=== PATIENT | female | born 1945 | race Caucasian/White ===

== ENCOUNTER 2016-11-18 09:48 | Observation (INO) ==
[2016-11-18] MEDS ORDERED: ASPIRIN 325 MG TABLET PO STA (10:23)
[2016-11-18] MEDS ORDERED: ENOXAPARIN 100 MG/ML SYRINGE SUBCUT STA (10:23)
[2016-11-18] MEDS ORDERED: ONDANSETRON 4 MG/2 ML VIAL IV STA (10:23)
[2016-11-18 10:31] LABS: Basophils # 0.1 10*3/uL (0.0-0.2); Basophils % 1.3 % (0.0-0.8); Eosinophils # 0.1 10*3/uL (0.0-0.87); Eosinophils % 1.5 % (0.00-10.9); Hematocrit 42.5 VOL% (35.7-47.0); Hemoglobin 14.2 GM/DL (12.0-16.0); Immature Granulocytes % 0.2 %; Immature Granulocytes Absolute 0.01 #; Lymphocytes # 1.1 10*3/uL (1.4-4.0); Lymphocytes % 22.8 % (21.3-54.2); Mean Corpuscular HGB Conc 33.4 GM/DL (32-36); Mean Corpuscular Hemoglobin 28 PG (27-34); Mean Corpuscular Volume 82.8 FL (87-102); Mean Platelet Volume 10.4 FL (9.6-12.0); Monocytes # 0.5 10*3/uL (0.11-0.8); Monocytes % 10.4 % (1.7-12.7); Neutrophils # 2.9 10*3/uL (1.4-7.4); Neutrophils % 63.8 % (38.7-73.9); Platelet Count 182 T/CUMM (130-400); Red Blood Count 5.13 MC/CUMM (3.8-5.5); Red Cell Distribution Width 13.4 % (9.3-17.3); White Blood Count 4.6 T/CUMM (4-12)
[2016-11-18] MEDS ORDERED: ONDANSETRON 4 MG/2 ML VIAL ONE (10:35)
[2016-11-18] MEDS ORDERED: ASPIRIN 325 MG TABLET ONE (10:35)
[2016-11-18] MEDS ORDERED: ENOXAPARIN 60 MG/0.6 ML SYRINGE ONE (10:35)
[2016-11-18 10:37] LABS: Partial Thromboplastin Time 25.9 SECS (0-40)
[2016-11-18 10:44] LABS: Alanine Aminotransferase 23 U/L (13-56); Albumin 3.8 G/DL (3.4-5.0); Alkaline Phosphatase 77 U/L (45-117); Aspartate Amino Transferase 14 U/L (0-37); Blood Urea Nitrogen 8 MG/DL (7-18); Calcium 9.2 MG/DL (8.5-10.1); Glucose 114 MG/DL (74-106); Magnesium 2.3 MG/DL (1.8-2.4); Osmolality,Calculated 281.1 MOS/KG (273-304); Potassium 3.7 MMOL/L (3.5-5.1); Sodium 142 MMOL/L (136-145); Total Protein 6.9 G/DL (6.4-8.3); Troponin I Only < 0.015 NG/ML (0.00-0.045)
--- NOTE | 2016-11-18 11:01 | Emergency Department Note ---
Jazmine Coburn Rolonda, am scribing for, and in the presence of, Joss Flores MD 10:32. Sandra Coburn Phillip K, MD, personally performed the services described in this documentation, ascribed by Melany Lucero in my presence, and it is both accurate and complete . Arrival - Arrival Chief Complaint: Chest Pain ED Nursing Triage Note: c/o has had cp for a few days. pt was seen at [facility] yesterday and d/cd. pt went to her appointment with susan this am and was sent here. pt took a xanax at [facility] before coming up here Mode of Arrival: Stretcher Limitations: No Limitations Source: Patient, Old Records Reviewed, RN Notes Reviewed Time Seen by Provider: 11/18/16 10:15 - History of Present Illness HPI Narrative: Pt is a 71 y/o female who presents to the ED via EMS with c/o chest pain. Pt has a PMHx of Afib, heart cath, HTN, and HLD. Pt states that the pain is in the middle and on the left and right side of her chest. She states that she has a f/ u appointment with Dr. Thacker and that she was seen at [facility] last night. She states that she had diaphoresis, nausea, and SOB. Pt is f/u by Dr. Chaves. No other complaint/pain in ED. patient went to Dr. Dr. Thacker's office this morning was sent over here for further evaluation. Patient's pain does radiate down her left arm. She also has some nausea vomiting and dyspnea with this pain. Onset (ago): day(s) Consistency: constant Severity: mild Severity scale (1-10): 3 Allergies/Adverse Reactions: Allergies Allergy/AdvReac Type Severity Reaction Status Date / Time dabigatran etexilate Allergy ITCHING Verified 08/16/14 09:15 [From Pradaxa] metoprolol Allergy ITCHING Verified 08/16/14 09:15 Verapamil Allergy ITCHING Verified 08/16/14 09:15 Warfarin [From Coumadin] Allergy ITCHING Verified 08/16/14 09:15 Home Medications: Home Medications Medication Instructions Recorded Confirmed Type ALPRAZolam [Alprazolam] 1 mg PO TID 11/18/16 History Atorvastatin [Lipitor] 20 mg PO BEDTIME 11/18/16 History Calcium (Carb)/Vit D 500-200 1 tablet PO DAILY 11/18/16 History [Oscal 500 + D] Cetirizine HCl [Cetirizine Tab] 10 mg PO DAILY 11/18/16 History Citalopram Hydrobromide 40 mg PO DAILY 11/18/16 History [Citalopram HBr] Estrogens(Conj) Vag Cream 1 applic TOP BEDTIME PRN 11/18/16 History [Premarin Vag Cream] Gabapentin [Gabapentin] 300 mg PO DAILY 11/18/16 History Ranitidine Tab [Zantac Tab] 150 mg PO BID 11/18/16 History dilTIAZem HCl [Diltiazem ER (12 120 mg PO BID 11/18/16 History hr)] Review of System - Review of System 12 point system: reviewed and no additional remarkable complaints except as stated - Review of System Constitutional: Present: diaphoresis. Absent: chills Eyes: Absent: discharge Head/Ears/Nose/Throat: Absent: earache Respiratory: Present: respiratory distress (SOB). Absent: cough Cardiovascular: Present: chest pain (wall). Absent: palpitations Gastrointestinal: Present: nausea. Absent: vomiting Genitourinary female: Absent: dysuria Musculoskeletal: Absent: arm pain Skin: Absent: rash Neurological: Absent: headache, weakness Psychiatric: Absent: anxiety Endocrine: Absent: cold intolerance Hematological/Lymphatic: Absent: easy bleeding Allergic/Immunologic: Absent: facial swelling Medical,Surgical,& Family Hx - Medical History Cardio: History of: Cardiac Dysrhythmia, Hypertension Comment Only: Cerebrovascular Disease (afib) Psychological: History of: Anxiety Disorders, Depression Neurology: History of: Cerebrovascular Accident Endocrine: History of: Dyslipidemia Gastrointestinal: History of: GERD - Social History Smoking Status: Never smoker Frequency of Alcohol Use: None Type of Drug Use: None Exam Vital Signs: Vital Signs Temperature 98.6 F 11/18/16 09:55 Pulse Rate 85 11/18/16 09:55 Respiratory Rate 18 11/18/16 10:02 Blood Pressure 153/100 11/18/16 09:55 O2 Sat by Pulse Oximetry 99 11/18/16 09:55 - General General appearance: alert, in no apparent distress - Head Head exam: Present: atraumatic, normocephalic - Eye Eye exam: Present: PERRL, EOMI - ENT ENT exam: Present: mucous membranes moist. Absent: mucous membranes dry - Neck Neck exam: Present: full ROM. Absent: tenderness - Chest Chest inspection: Present: symmetric chest wall rise, tenderness (to palpation to left chest) - Respiratory Respiratory exam: Present: normal lung sounds bilaterally. Absent: wheezes - Cardiovascular Cardiovascular exam: Present: regular rate, irregular rhythm - Abdominal Exam Abdominal exam: Present: soft, normal bowel sounds. Absent: tenderness - Extremities Exam Extremities exam: Present: full ROM. Absent: tenderness - Back Exam Back exam: Present: full ROM. Absent: tenderness - Neurological Exam Neurological exam: Present: alert, oriented X3, CN II-XII intact - Psychiatric Psychiatric exam: Present: normal affect, normal mood - Skin Skin exam: Present: warm, dry, intact, normal color Results - Labs CBC & BMP: 11/18/16 10:07 11/18/16 10:07 Lab Results: I have reviewed the patients labs Labs: Laboratory Tests 11/18/16 11/18/16 10:07 10:07 WBC 4.6 RBC 5.13 Hgb 14.2 Hct 42.5 MCV 82.8 L Baso % (Auto) 1.3 H Lymph # (Auto) 1.1 L INR 1.0 PT Patient/Control Mix 11.0 Circ Anticoag PTT 25.9 Laboratory Tests 11/18/16 10:07 Sodium 142 Potassium 3.7 Chloride 107 Carbon Dioxide 29 BUN 8 GFR Calculation 79 Glucose 114 H AST 14 - EKG EKG results: interpreted by ERMD (Atrial fibrillation with nonspecific ST-T changes) - Diagnostic Findings Procedure: Chest x-ray: image reviewed by me (Nothing acute) Disposition Clinical Impression: Chest pain, Rule out unstable angina Case discussed with: patient Disposition: Still a Patient Condition: Guarded Additional Instructions: Admit to Dr. Cornejo
[2016-11-18] MEDS ORDERED: ACETAMINOPHEN 325 MG TABLET PO PRN (11:04)
[2016-11-18] MEDS ORDERED: MAGNESIUM SULF RIDER 4 GM in PREMIX 1 EACH IV PRN (11:04)
[2016-11-18] MEDS ORDERED: MAGNESIUM SULF RIDER 2 GM in PREMIX 1 EACH IV PRN (11:04)
--- NOTE | 2016-11-18 11:08 | XRay Report ---
XR chest 2V Date: 11/18/2016 10:23 AM History: Chest pain Comparison: 06/08/2010 Technique: PA and lateral chest Findings: The heart is minimally enlarged with uncoiling of the aorta. The lungs and mediastinum are stable in appearance. Degenerative changes are noted with prior cholecystectomy. Impression: No acute cardiopulmonary pathology identified. PROCEDURE INTERPRETED AT [facility] DEPARTMENT OF RADIOLOGY Final Report Signed by: Dr. Mariola Alfaro
--- NOTE | 2016-11-18 13:23 | Cardiology History & Physical ---
<Katie Donohue - Last Filed: 11/18/16 13:35> Assessment and Plan - Time spent with patient Time spent with patient: Greater than 30 minutes (1) Atypical chest pain Status: Acute Assessment and plan: SEE PLAN OF CARE LISTED BELOW. Current Visit: Yes (2) Chronic a-fib Status: Chronic Assessment and plan: SEE PLAN OF CARE LISTED BELOW. Current Visit: Yes (3) Hypertension Status: Chronic Assessment and plan: SEE PLAN OF CARE LISTED BELOW. Current Visit: Yes (4) Dyslipidemia Status: Chronic Assessment and plan: SEE PLAN OF CARE LISTED BELOW. Current Visit: Yes (5) History of CVA (cerebrovascular accident) Status: Chronic Assessment and plan: SEE PLAN OF CARE LISTED BELOW. Current Visit: Yes (6) GERD (gastroesophageal reflux disease) Status: Chronic Assessment and plan: SEE PLAN OF CARE LISTED BELOW. Current Visit: Yes (7) Anxiety Status: Chronic Assessment and plan: SEE PLAN OF CARE LISTED BELOW. Current Visit: Yes History of Present Illness Chief complaint: chest pain History of present illness: [employer] HR DEVELOPER: Dr. Thacker PCP: Dr. Chaves Ms. Machado is a 71 year old female without known coronary artery disease, routinely followed by Dr. Thacker. Cardiac risk factors include: Hypertension , dyslipidemia, advanced age and family history of premature CAD (son had OR at age 37). Past medical history includes: Anxiety, chronic A. fib, CVA, depression, GERD and MR. Most recent echocardiogram was performed August 2016. At that time, her ejection fraction was preserved at 65%. Mild MR. Moderate TR. Mild aortic regurgitation and mild pulmonic regurgitation. Estimated PAP 45 mmHg. She had heart catheterization performed at [facility] in 2007 which revealed normal coronary anatomy. No significant obstructive CAD was noted per report. May 2012 she had negative stress test. Earlier this morning, she was at the cardiovascular [facility] after her routine checkup with her stapler machine when she began experience any chest pain. EKG was obtained and she was sent to the emergency department for further evaluation. Patient was sent to the emergency department from the cardiovascular [facility] earlier this morning after complaining of chest pain. She reports that she has been experiencing pain all over her chest for the last 3 days. Her pain moves. Sometimes she hurts on the left side and other day she hurts on the right. Today, she says she is mostly hurting on the right side of her chest. This is nonradiating. Associated with shortness of breath, abdominal pain and nausea. Denies diaphoresis. She is unable to identify any specific alleviating or aggravating factors. It is not worsened with exertion, positioning or deep breathing. She does report that she presented to [facility] last night. She received nitroglycerin which did not help her pain at all. She was then sent home. She reports that she was still having chest pain when she left the emergency department. Today she [place] had appointment scheduled with her primary stapler machine. However, her primary stapler machine was not in the clinic and she was seen by Dr. Pabon. EKG was obtained after she reported chest pain and she was sent to the emergency department for further evaluation. She has history of depression and anxiety. She reports over the last week she has been more depressed and anxious than usual. She reports regular exercise on the treadmill. She is able to perform this activity without experiencing chest pain, heaviness or tightness. She denies change in her exercise tolerance. Patient has been admitted to cardiology's service. Patient was seen and examined in the ICU. She is a telemetry overflow. No rooms available on the telemetry unit. She continues to complain of chest discomfort. Upon exam, her chest pain is reproducible to light palpation. She tells me that this is the exact same pain that she has been experiencing which she came to the emergency department for further evaluation. Cardiac biomarkers have been negative so far. EKG is unchanged from previous tracings. Chest x-ray does not reveal any acute cardia pulmonary processes. I have discussed this patient with Dr. Cornejo. We will admit patient and rule out for myocardial infarction. Suspect that her chest pain has anxiety component as well as musculoskeletal. We will treat patient's musculoskeletal pain with NSAIDs. We will cycle cardiac biomarkers and EKGs in order to formally rule out patient for myocardial infarction. If these remain negative she will be eligible for discharge home tomorrow. I will further discuss with Dr. Cornejo and await his additional recommendations. IMPRESSION AND PLAN: 1. ATYPICAL CHEST PAIN - This is chronic for her. Atypical in nature. She has undergone cardiac workup in the past which has been negative. Cardiac biomarkers negative so far. EKG unchanged from previous tracings. I suspect that her chest pain is multifactorial in etiology to include musculoskeletal as well as anxiety. At this point, we will admit patient and rule out for myocardial infarction. We will treat patient's musculoskeletal pain as well as anxiety. Toradol initiated. Will continue patient's Xanax. If cardiac biomarkers and EKGs remain negative will anticipate discharge home in the morning. Patient did receive therapeutic dose of Lovenox in the emergency department. Continue nitrates. I have added aspirin. I will further discuss with Dr. Cornejo and await his additional recommendations. 2. CHRONIC ATRIAL FIBRILLATION - Patient has chronic atrial fibrillation. She is rate controlled with current medication regimen. She is on anticoagulation as she is allergic to both Coumadin and Xarelto. She is a very high stroke risk as she does have a history of stroke in the past. However, given her allergy to Coumadin and NOAC she is not a candidate for anticoagulation. 3. HYPERTENSION - Well controlled. Will monitor blood pressure and adjust accordingly this hospitalization. 4. DYSLIPIDEMIA - Continue lipid-lowering agent. Lipid panel in the morning. 5. HISTORY OF CVA - Patient is allergic to NOAC class as well as Coumadin. I have added low-dose aspirin. 6. GERD - PPI initiated. 7. ANXIETY - Continue Xanax. Home Medications Medication Instructions Recorded Confirmed Type ALPRAZolam [Alprazolam] 1 mg PO TID 11/18/16 11/18/16 History Ascorbic Acid Tab [Vitamin C Tab] 500 mg PO QAM 11/18/16 11/18/16 History Calcium (Carb)/Vit D 500-200 1 tablet PO QAM 11/18/16 11/18/16 History [Oscal 500 + D] Cetirizine HCl [Cetirizine Tab] 10 mg PO QPM 11/18/16 11/18/16 History Cholecalciferol (Vitamin D3) 2,000 unit PO QAM 11/18/16 11/18/16 History [Vitamin D3] Citalopram Hydrobromide 40 mg PO QPM 11/18/16 11/18/16 History [Citalopram HBr] Gabapentin [Gabapentin] 300 mg PO BEDTIME PRN 11/18/16 11/18/16 History Multivitamin (Centrum) [Centrum 1 tablet PO QAM 11/18/16 11/18/16 History Tab] Nitroglycerin Sl Tab [Nitrostat] 0.4 mg SL Q5M PRN 11/18/16 11/18/16 History [place]-3 Fatty Acids [[place]-3 Chew 100 mg PO QAM 11/18/16 11/18/16 History Tab] Ranitidine Tab [Zantac Tab] 150 mg PO BID PRN 11/18/16 11/18/16 History Ubidecarenone [Co Q-10] 100 mg PO QAM 11/18/16 11/18/16 History dilTIAZem HCl [Diltiazem ER (12 120 mg PO BID 11/18/16 11/18/16 History hr)] Allergies Allergy/AdvReac Type Severity Reaction Status Date / Time dabigatran etexilate Allergy ITCHING Verified 08/16/14 09:15 [From Pradaxa] metoprolol Allergy ITCHING Verified 08/16/14 09:15 Verapamil Allergy ITCHING Verified 08/16/14 09:15 Warfarin [From Coumadin] Allergy ITCHING Verified 08/16/14 09:15 - Constitutional Constitutional: Present: as per HPI. Absent: chills, fatigue, fever(s), headache(s), lethargy, malaise, weakness, weight gain, weight loss - Cardiovascular Cardiovascular: Present: as per HPI, chest pain at rest, dyspnea, lightheadedness. Absent: claudication, diaphoresis, dyspnea on exertion, edema , radiating jaw, neck or arm pain, orthopnea, palpitations, PND - Respiratory Respiratory: Present: as per HPI, dyspnea. Absent: cough, hemoptysis, dyspnea on exertion, wheezing, snoring, pain on inspiration, change in phlegm color - Gastrointestinal Gastrointestinal: Present: as per HPI, abdominal pain, heartburn, nausea. Absent: change in bowel habits, coffee ground emesis, hematemesis, hematochezia , melena, vomiting - Neurological Neurological: Present: as per HPI, dizziness. Absent: abnormal gait, abnormal speech, behavioral changes, frequent falls, syncope - Psychiatric Psychiatric: Present: as per HPI, anxiety, depression, panic attacks - Hematologic/Lymphatic Hematologic/Lymphatic: Present: as per HPI Medical,Surgical,& Family Hx - Medical History Cardio: History of: Cardiac Dysrhythmia (afib), Cerebrovascular Disease (afib), Hypertension Psychological: History of: Anxiety Disorders, Depression Neurology: History of: Cerebrovascular Accident Endocrine: History of: Dyslipidemia Gastrointestinal: History of: GERD - Surgical History Cardiac Surgeries: Sugical HX of: Cardiac Catheterization - Family History Family History: Reports;: Family Heart Disease - Social History Smoking Status: Never smoker Frequency of Alcohol Use: None Type of Drug Use: None Marital Status: Lives With:: Alone Functional capacity: independent ambulation Cardiology Physical Exam - Constitutional Vitals: Vital Signs Temp Pulse Resp BP Pulse Ox 98.6 F 85 18 153/100 99 11/18/16 09:55 11/18/16 09:55 11/18/16 10:02 11/18/16 09:55 11/18/16 09:55 Intake and Output 11/17/16 11/18/16 11/18/16 22:59 06:59 14:59 Other: Weight 137 lb Patient Weight 11/19/16 06:59 Weight 137 lb Exam: General: Appears well with no apparent distress. Pleasant and cooperative. Appears comfortable. HEENT: PERRL, normocephalic, atraumatic. Mucous membranes moist. No jaundice noted. Conjunctiva moist and clear, sclerae anicteric Neck: No JVD/HJR, no thyromegaly or lymphadenopathy noted. No carotid bruit appreciated Cardiac: Regular rate and rhythm. No murmur rub or gallop. Lungs: Clear to auscultation without accessory muscle use to assist the respiratory pattern. Not requiring oxygen. Abdomen: Soft, bowel sounds normoactive. Nontender and nondistended. No abdominal bruit or thrill noted. No masses noted. Extremities: No clubbing, cyanosis noted. No edema noted. Upper extremity pulses 2+. Lower extremity pulses 2+. Capillary refill less than 3 seconds. Skin: No unusual lesions or rashes. No skin breakdown appreciated. Neuro: Awake, alert and oriented 3. Moves all extremities well without hemiparesis or paralysis. No essential tremor is appreciated. Result/EKG - Labs CBC & BMP: 11/18/16 10:07 11/18/16 10:07 Lab Results: I have reviewed the past 24 hour labs Labs: Laboratory Results - last 24 hr 11/18/16 11/18/16 11/18/16 10:07 10:07 10:07 WBC 4.6 RBC 5.13 Hgb 14.2 Hct 42.5 MCV 82.8 L MCH 28 MCHC 33.4 RDW 13.4 Plt Count 182 MPV 10.4 Neut % (Auto) 63.8 Lymph % (Auto) 22.8 [place] % (Auto) 10.4 Eos % (Auto) 1.5 Baso % (Auto) 1.3 H Neut # (Auto) 2.9 Lymph # (Auto) 1.1 L [place] # (Auto) 0.5 Eos # (Auto) 0.1 Baso # (Auto) 0.1 Immature Gran % 0.2 Nucleated RBC % 0.0 Immature Gran # 0.01 Nucleated RBCs # 0.00 Immature Plt Fraction 0.0 INR 1.0 PT Patient/Control Mix 11.0 Circ Anticoag PTT 25.9 Sodium 142 Potassium 3.7 Chloride 107 Carbon Dioxide 29 Anion Gap 9.7 BUN 8 Creatinine 0.70 GFR Calculation 79 BUN/Creatinine Ratio 11.00 Glucose 114 H Calculated Osmolality 281.1 Calcium 9.2 Magnesium 2.3 Total Bilirubin 0.50 AST 14 ALT 23 Alkaline Phosphatase 77 Total Creatine Kinase 57 CK-MB (CK-2) 1.1 Troponin I < 0.015 Total Protein 6.9 Albumin 3.8 Globulin 3.1 Albumin/Globulin Ratio 1.2 <Dexter Cornejo - Last Filed: 11/18/16 18:21> History of Present Illness History of present illness: Patient personally interviewed and examined and chart reviewed. Discussed this patient's case with Katie Donohue CLASSIFIER TENDER. I agree with the assessment and evaluation. Ms. Machado is a 71 year old female who has chronic chest pain is recurrent and noncardiac. She has had negative evaluations previously. Her biomarkers and ECGs are negative. She has chronic atrial fibrillation. The patient the time of my visit had all ready received IV Toradol with this had complete resolution of her pain. She is eating supper at my arrival. On admission the patient had tenderness with palpation over her chest that reproduces her pain as well as a deep breaths. Certainly if her biomarkers and ECG continues to be stable no further evaluation indicated she can be discharged tomorrow. Cardiology Physical Exam - Constitutional Vitals: Vital Signs Temp Pulse Resp BP Pulse Ox 98.6 F 85 17 163/80 99 11/18/16 16:00 11/18/16 16:00 11/18/16 16:00 11/18/16 16:00 11/18/16 16:00 Intake and Output 11/18/16 11/18/16 11/18/16 07:59 15:59 23:59 Output Total 0 / 0 Balance 0 / 0 Output: Urine 0 / 0 Other: Weight 62.142 kg Patient Weight 11/18/16 23:59 Weight 62.142 kg Result/EKG - Labs CBC & BMP: 11/18/16 10:07 11/18/16 10:07 Labs: Laboratory Results - last 24 hr 11/18/16 11/18/16 11/18/16 10:07 10:07 10:07 WBC 4.6 RBC 5.13 Hgb 14.2 Hct 42.5 MCV 82.8 L MCH 28 MCHC 33.4 RDW 13.4 Plt Count 182 MPV 10.4 Neut % (Auto) 63.8 Lymph % (Auto) 22.8 [place] % (Auto) 10.4 Eos % (Auto) 1.5 Baso % (Auto) 1.3 H Neut # (Auto) 2.9 Lymph # (Auto) 1.1 L [place] # (Auto) 0.5 Eos # (Auto) 0.1 Baso # (Auto) 0.1 Immature Gran % 0.2 Nucleated RBC % 0.0 Immature Gran # 0.01 Nucleated RBCs # 0.00 Immature Plt Fraction 0.0 INR 1.0 PT Patient/Control Mix 11.0 Circ Anticoag PTT 25.9 Sodium 142 Potassium 3.7 Chloride 107 Carbon Dioxide 29 Anion Gap 9.7 BUN 8 Creatinine 0.70 GFR Calculation 79 BUN/Creatinine Ratio 11.00 Glucose 114 H Calculated Osmolality 281.1 Calcium 9.2 Magnesium 2.3 Total Bilirubin 0.50 AST 14 ALT 23 Alkaline Phosphatase 77 Total Creatine Kinase 57 CK-MB (CK-2) 1.1 Troponin I < 0.015 Total Protein 6.9 Albumin 3.8 Globulin 3.1 Albumin/Globulin Ratio 1.2 11/18/16 11/18/16 13:16 16:09 WBC RBC Hgb Hct MCV MCH MCHC RDW Plt Count MPV Neut % (Auto) Lymph % (Auto) [place] % (Auto) Eos % (Auto) Baso % (Auto) Neut # (Auto) Lymph # (Auto) [place] # (Auto) Eos # (Auto) Baso # (Auto) Immature Gran % Nucleated RBC % Immature Gran # Nucleated RBCs # Immature Plt Fraction INR PT Patient/Control Mix Circ Anticoag PTT Sodium Potassium Chloride Carbon Dioxide Anion Gap BUN Creatinine GFR Calculation BUN/Creatinine Ratio Glucose Calculated Osmolality Calcium Magnesium Total Bilirubin AST ALT Alkaline Phosphatase Total Creatine Kinase 55 51 CK-MB (CK-2) 1.0 < 1.0 Troponin I < 0.015 < 0.015 Total Protein Albumin Globulin Albumin/Globulin Ratio
[2016-11-18] MEDS ORDERED: GABAPENTIN 300 MG CAPSULE PO PRN (13:43)
--- NOTE | 2016-11-18 13:44 | Order Completion Report ---
See report scanned to EMR
[2016-11-18 14:15] LABS: Troponin I Only < 0.015 NG/ML (0.00-0.045)
[2016-11-18] MEDS: KETOROLAC 15 MG/1 ML VIAL IV SCH ×2 (16:13→18:59)
[2016-11-18] MEDS: PANTOPRAZOLE 40 MG TABLET PO SCH (16:13)
[2016-11-18] MEDS: ALPRAZolam 0.5 MG TABLET PO SCH ×2 (16:18→21:14)
[2016-11-18 17:02] LABS: Troponin I Only < 0.015 NG/ML (0.00-0.045)
[2016-11-18] MEDS ORDERED: CITALOPRAM 40 MG TABLET PO SCH (19:00)
[2016-11-18] MEDS ORDERED: CETIRIZINE 10 MG TABLET PO SCH (19:00)
[2016-11-18 20:22] LABS: Troponin I Only < 0.015 NG/ML (0.00-0.045)
[2016-11-18] MEDS: DILTIAZEM CD 120 MG CAPSULE PO SCH (21:12)
[2016-11-18] MEDS: NITROGLYCERIN SL 0.4 MG TABLET SL PRN ×2 (22:55→23:00)
[2016-11-18] MEDS ORDERED: ALUM/MAG/SIMETH/LIDO VISC 1:1 30 ML BOTTLE PO ONE (23:01)
[2016-11-19] MEDS: KETOROLAC 15 MG/1 ML VIAL IV SCH (03:08)
[2016-11-19 04:59] LABS: Basophils # 0.1 10*3/uL (0.0-0.2); Basophils % 1.3 % (0.0-0.8); Eosinophils # 0.1 10*3/uL (0.0-0.87); Eosinophils % 1.5 % (0.00-10.9); Hematocrit 41.7 VOL% (35.7-47.0); Hemoglobin 13.7 GM/DL (12.0-16.0); Immature Granulocytes % 0.2 %; Immature Granulocytes Absolute 0.01 #; Lymphocytes # 2.1 10*3/uL (1.4-4.0); Lymphocytes % 43.7 % (21.3-54.2); Mean Corpuscular HGB Conc 32.9 GM/DL (32-36); Mean Corpuscular Hemoglobin 27 PG (27-34); Mean Corpuscular Volume 83.1 FL (87-102); Mean Platelet Volume 10.2 FL (9.6-12.0); Monocytes # 0.5 10*3/uL (0.11-0.8); Monocytes % 10.9 % (1.7-12.7); Neutrophils % 42.4 % (38.7-73.9); Platelet Count 182 T/CUMM (130-400); Red Blood Count 5.02 MC/CUMM (3.8-5.5); Red Cell Distribution Width 13.4 % (9.3-17.3); White Blood Count 4.8 T/CUMM (4-12)
[2016-11-19 05:26] LABS: Risk Ratio 2.84
[2016-11-19 05:39] LABS: Calcium 9.1 MG/DL (8.5-10.1); Magnesium 2.5 MG/DL (1.8-2.4); Osmolality,Calculated 283.1 MOS/KG (273-304)
--- NOTE | 2016-11-19 07:50 | Order Completion Report ---
See report scanned to EMR
--- NOTE | 2016-11-19 08:40 | Discharge Summary ---
Addendum entered and electronically signed by Katie Donohue NP 11/19/16 09:31 : Pharmacy was not selected in the EMR. Patient was given a printed prescription for all of her new medications. Original Note: Hospital Course - Hospital Course Hospital Course: [employer] PROFESSOR: Dr. Thacker PCP: Dr. Riley SUMMARY Ms. Machado is a 71 year old female without known coronary artery disease, routinely followed by Dr. Thacker. Cardiac risk factors include: Hypertension , dyslipidemia, advanced age and family history of premature CAD (son had CO at age 37). Past medical history includes: Anxiety, chronic A. fib, CVA, depression, GERD and MR. Most recent echocardiogram was performed August 2016. At that time, her ejection fraction was preserved at 65%. Mild MR. Moderate TR. Mild aortic regurgitation and mild pulmonic regurgitation. Estimated PAP 45 mmHg. She had heart catheterization performed at [facility] in 2007 which revealed normal coronary anatomy. No significant obstructive CAD was noted per report. May 2012 she had negative stress test. Patient was sent to the emergency department from the cardiovascular [place] [facility] the [facility] 11/18/16 with complaints of atypical chest pain. She was at the cardiovascular [place] for her routine checkup with her geometry tutor when she began experience chest pain. EKG was obtained and she was sent to the emergency department for further evaluation. Upon arrival to our facility, she was ruled out for myocardial infarction with negative cardiac biomarkers. EKGs were unchanged from previous tracings. She does have a history of chronic chest pain that is recurrent in noncardiac in nature. She has had negative evaluations previously. Her chest pain was felt to have a musculoskeletal component. This was treated with IV Toradol which alleviated her pain. She will be discharged home with p.o. Toradol to use as needed. She also be given prescription for PPI. Also, anxiety seems to be playing a role as well. She takes Xanax daily at home. This will be continued at discharge. I have instructed her to follow with her PCP, Dr. Riley for further management of this. She is a history of chronic atrial fibrillation. She has maintained rate control this admission. Due to medication allergies to Coumadin and NOAC medication class she is not on chronic anticoagulation. Lipid panel was obtained. Cholesterol 264 with LDL of 162. I will add low-dose statin to patient's medication regimen in hopes to reduce side effects. She will need a repeat lipid panel in 4-6 weeks. This morning, patient is anxious for discharge home. She denies chest pain, heaviness or tightness. Having felt that she has met maximal medical therapy, she will be discharged home in stable condition. She will be given a follow-up appoint with Dr. Thacker and approximately 1 month with EKG. She has also been instructed to follow-up with her PCP, Dr. Riley for management of her anxiety/depression. Patient verbalizes understanding of discharge instructions and discharge medications. Patient personally reviewed and examined chart reviewed. I discussed his case with Katie Donohue GEOLOGICAL E LOGGER. Agree with the plan for discharge. Have discussed this with the patient. She is agreeable desires discharge. - Time spent with patient Time with patient DS: Greater than 30 minutes Diagnosis - Discharge Diagnosis (1) Atypical chest pain Status: Resolved (2) Chronic a-fib Status: Chronic (3) Hypertension Status: Chronic (4) Dyslipidemia Status: Chronic (5) History of CVA (cerebrovascular accident) Status: Chronic (6) GERD (gastroesophageal reflux disease) Status: Chronic (7) Anxiety Status: Chronic Specialty Discharge - Follow Up or Referrals Follow up with: Margoth Riley [Physician] - 2 Weeks (CALL DR. RILEY OFFICE AND MAKE A 2 WEEK APPOINTMENT) Marivel Thacker MD [Physician] - 12/08/16 9:20 am (EKG) Discharge Plan - Discharge Data Disposition: Disch To Home/Self Care Condition at Discharge: Stable Discharge Diet: heart healthy Activity: resume usual activities as tolerated Hygiene: no restrictions Weight Bearing at Discharge: weight bear as tolerated Driving: no restrictions Contact your physician if you experience:: fever over 101, Difficulty voiding, Redness or swelling, Nausea/Vomiting, Shortness of breath, pain uncontrolled by pain medications - Discharge Medications New Aspirin EC Tab 81 mg PO DAILY #30 tablet Ketorolac Tab [Toradol Tab] 10 mg PO Q6H PRN #40 tablet PRN Reason: Pain Pantoprazole Tab [Protonix Tab] 40 mg PO DAILY #30 tablet Pravastatin [Pravachol] 10 mg PO BEDTIME #15 tablet Continue dilTIAZem HCl [Diltiazem ER (12 hr)] 120 mg PO BID Gabapentin 300 mg PO BEDTIME PRN PRN Reason: BACK PAIN ALPRAZolam [Alprazolam] 1 mg PO TID Cetirizine HCl [Cetirizine Tab] 10 mg PO QPM Ascorbic Acid Tab [Vitamin C Tab] 500 mg PO QAM Ubidecarenone [Co Q-10] 100 mg PO QAM Cholecalciferol (Vitamin D3) [Vitamin D3] 2,000 unit PO QAM Citalopram Hydrobromide [Citalopram HBr] 40 mg PO QPM Calcium (Carb)/Vit D 500-200 [Oscal 500 + D] 1 tablet PO QAM Nitroglycerin Sl Tab [Nitrostat] 0.4 mg SL Q5M PRN PRN Reason: Chest Pain Multivitamin (Centrum) [Centrum Tab] 1 tablet PO QAM Marlin-3 Fatty Acids [Marlin-3 Chew Tab] 100 mg PO QAM Discontinued Ranitidine Tab [Zantac Tab] 150 mg PO BID PRN PRN Reason: GI UPSET - Follow Up or Referral Follow Up: Margoth Riley [Physician] - 2 Weeks (CALL DR. RILEY OFFICE AND MAKE A 2 WEEK APPOINTMENT) Marivel Thacker MD [Physician] - 12/08/16 9:20 am (EKG) - Forms/Instructions Instructions: Atrial Fibrillation (DC), Chest Pain (DC), Chronic Hypertension ( DC) Exam - Constitutional Vitals: Period Temp Pulse Resp BP Sys/Odell Pulse Ox Last 24 Hr 98.6 F-98.9 F 61-85 13-18 112-163/54-80 94-99 Exam: General: Appears well with no apparent distress. Pleasant and cooperative. Appears comfortable. HEENT: PERRL, normocephalic, atraumatic. Mucous membranes moist. No jaundice noted. Conjunctiva moist and clear, sclerae anicteric Neck: No JVD/HJR, no thyromegaly or lymphadenopathy noted. No carotid bruit appreciated Cardiac: Irregular rhythm, rate controlled. No murmur rub or gallop. Lungs: Clear to auscultation without accessory muscle use to assist the respiratory pattern. Not requiring oxygen. Abdomen: Soft, bowel sounds normoactive. Nontender and nondistended. No abdominal bruit or thrill noted. No masses noted. Extremities: No clubbing, cyanosis noted. No edema noted. Upper extremity pulses 2+. Lower extremity pulses 2+. Capillary refill less than 3 seconds. Skin: No unusual lesions or rashes. No skin breakdown appreciated. Neuro: Awake, alert and oriented 3. Moves all extremities well without hemiparesis or paralysis. No essential tremor is appreciated. Discharge Results Procedures and tests throughout hospitalization: Pending Orders 11/18/16 12:00 MRSA Surveillence, Inf Control Routine Labs on day of discharge: Labs from last 24 hours 11/19/16 11/19/16 11/19/16 04:47 04:47 04:46 WBC 4.8 RBC 5.02 Hgb 13.7 Hct 41.7 MCV 83.1 L MCH 27 MCHC 32.9 RDW 13.4 Plt Count 182 MPV 10.2 Neut % (Auto) 42.4 Lymph % (Auto) 43.7 Upton % (Auto) 10.9 Eos % (Auto) 1.5 Baso % (Auto) 1.3 H Neut # (Auto) 2.0 Lymph # (Auto) 2.1 Upton # (Auto) 0.5 Eos # (Auto) 0.1 Baso # (Auto) 0.1 Immature Gran % 0.2 Nucleated RBC % 0.0 Immature Gran # 0.01 Nucleated RBCs # 0.00 Immature Plt Fraction 0.0 Sodium 142 Potassium 4.0 Chloride 107 Carbon Dioxide 27 Anion Gap 12.0 BUN 14 Creatinine 0.80 GFR Calculation 70 BUN/Creatinine Ratio 17.00 Glucose 96 Calculated Osmolality 283.1 Calcium 9.1 Magnesium 2.5 H Total Creatine Kinase CK-MB (CK-2) Troponin I Triglycerides 50 Cholesterol 264 H LDL Cholesterol 162.0 VLDL Cholesterol 10.0 HDL Cholesterol 93 H Heart Disease Risk Ratio 2.84 11/18/16 11/18/16 11/18/16 19:37 16:09 13:16 WBC RBC Hgb Hct MCV MCH MCHC RDW Plt Count MPV Neut % (Auto) Lymph % (Auto) Upton % (Auto) Eos % (Auto) Baso % (Auto) Neut # (Auto) Lymph # (Auto) Upton # (Auto) Eos # (Auto) Baso # (Auto) Immature Gran % Nucleated RBC % Immature Gran # Nucleated RBCs # Immature Plt Fraction Sodium Potassium Chloride Carbon Dioxide Anion Gap BUN Creatinine GFR Calculation BUN/Creatinine Ratio Glucose Calculated Osmolality Calcium Magnesium Total Creatine Kinase 46 51 55 CK-MB (CK-2) < 1.0 < 1.0 1.0 Troponin I < 0.015 < 0.015 < 0.015 Triglycerides Cholesterol LDL Cholesterol VLDL Cholesterol HDL Cholesterol Heart Disease Risk Ratio - Imaging and Cardiology Procedure: Chest x-ray: report reviewed by me DS: Provider Date of admission: 11/18/16 11:03 Primary care physician: . No PCP Attending physician on admission: Dexter Cornejo MD Discharging clinician: Katie Donohue NP Expected date of discharge: 11/19/16
[2016-11-19] MEDS ORDERED: KETOROLAC 10 MG TABLET PO PRN (08:45)
[2016-11-19] MEDS ORDERED: ASPIRIN EC 81 MG TABLET PO SCH (09:00)
[2016-11-19] MEDS ORDERED: ASCORBIC ACID 500 MG TABLET PO SCH (09:00)
[2016-11-19] MEDS ORDERED: OMEGA PO SCH (09:00)
[2016-11-19] MEDS ORDERED: COENZYME Q10 100 MG CAPSULE PO SCH (09:00)
[2016-11-19] MEDS ORDERED: MULTIVITAMIN (CENTRUM) TABLET PO SCH (09:00)
[2016-11-19] MEDS ORDERED: FATTY ACIDS PO SCH (09:00)
[2016-11-19] MEDS ORDERED: ENOXAPARIN 40 MG/0.4 ML SYRINGE SUBCUT SCH (09:00)
[2016-11-19] MEDS ORDERED: CALCIUM (CARBONATE)/VITAMIN D 500 MG-200 UNIT TABLET PO SCH (09:00)
[2016-11-19] MEDS: DILTIAZEM CD 120 MG CAPSULE PO SCH (09:05)
[2016-11-19] MEDS: ALPRAZolam 0.5 MG TABLET PO SCH (09:09)
[2016-11-19] MEDS: PANTOPRAZOLE 40 MG TABLET PO SCH (09:10)
[2016-11-19 12:21] VITALS: BP 124/54
--- NOTE | 2016-11-19 13:08 | Order Completion Report ---
See report scanned to EMR
[2016-11-19] MEDS ORDERED: PRAVASTATIN 20 MG TABLET PO SCH (21:00)
--- NOTE | 2016-11-23 17:36 | Order Completion Report ---
See report scanned to EMR
== END 2016-11-19 11:25 | disposition home or self-care (01) ==
LOC: EDUNIT# → EDBD → N.EDINP 09:48 → N.ED 09:48 → N.EDINP 11:56 → N.CC 12:31
PROVIDERS: ADMIT Internal Medicine Cardiovascular Disease; ATTEND Internal Medicine Cardiovascular Disease

== ENCOUNTER 2019-08-08 19:50 | Inpatient (IN) ==
[2019-08-08] MEDS ORDERED: VECURONIUM 10 MG VIAL IV STA (20:04)
[2019-08-08] MEDS ORDERED: ETOMIDATE 20 MG/10 ML VIAL IV STA (20:05)
[2019-08-08] MEDS ORDERED: SODIUM CHLORIDE 0.9% 500 ML IV STA (20:08)
[2019-08-08] MEDS ORDERED: DIPH/TET/ACEL PERT BOOSTER VACCINE 0.5 ML VIAL IM ONE (20:10)
[2019-08-08 20:19] LABS: Basophils % 0.3 % (0.0-0.8); Eosinophils % 0.1 % (0.00-10.9); Hematocrit 51.7 VOL% (35.7-47.0); Hemoglobin 16.3 GM/DL (12.0-16.0); Immature Granulocytes % 0.8 %; Lymphocytes # 0.9 10*3/uL (1.4-4.0); Lymphocytes % 6.9 % (21.3-54.2); Mean Corpuscular HGB Conc 31.5 GM/DL (32-36); Mean Corpuscular Volume 84.9 FL (87-102); Mean Platelet Volume 11.7 FL (9.6-12.0); Monocytes % 12.2 % (1.7-12.7); Neutrophils % 79.7 % (38.7-73.9); Platelet Count 101 T/CUMM (130-400); Red Blood Count 6.09 MC/CUMM (3.8-5.5); Red Cell Distribution Width 14.7 % (9.3-17.3); White Blood Count 12.4 T/CUMM (4-12)
[2019-08-08 20:23] LABS: Apearance,Urine Slightly Hazy (Clear); Bacteria,Urine Occasional /HPF (Few); Bilirubin,Urine Negative (Negative); Blood, Urine Large mg/dL (Negative); Glucose,Urine (UA) Negative (Negative); Ketones,Urine Negative (Negative); Mucus,Urine Moderate /LPF (Occasional); Nitrite,Urine Negative (Negative); Protein,Urine Negative; RBC,Urine 199 /HPF (0-4); Urine Color Yellow (Yellow); Urine Specific Gravity 1.015 (1.001-1.035); Urine Urobilinogen < 2.0 EU/DL (0.2-1.0); WBC,Urine 4 /HPF (0-6)
[2019-08-08 20:26] LABS: INR 1.2
[2019-08-08 20:41] LABS: Barbiturates Screen,Urine Negative (Negative); Benzodiazepines Screen,Urine Positive (Negative); Cannabinoid Screen,Urine Negative (Negative); Opiate Screen,Urine Negative (Negative); Phencyclidine Screen,Urine Negative (Negative)
[2019-08-08 20:46] LABS: Alanine Aminotransferase 44 U/L (13-56); Albumin 3.9 G/DL (3.4-5.0); Alkaline Phosphatase 73 U/L (45-117); Aspartate Amino Transferase 47 U/L (0-37); Blood Urea Nitrogen 116 MG/DL (7-18); CKMB % 0.7 %; Calcium 8.7 MG/DL (8.5-10.1); Estimated Glom Filtration Rate 25 ML/MIN; Glucose 133 MG/DL (74-106); Osmolality,Calculated 324.8 MOS/KG (273-304); Thyroid Stimulating Hormone 0.412 uIU/ml (0.358-3.74); Total Protein 7.8 G/DL (6.4-8.3)
[2019-08-08] MEDS ORDERED: SODIUM CHLORIDE 0.9% 1,000 ML IV STA (20:52)
[2019-08-08 20:55] LABS: ABG Base Excess -1.1 MMOL/L (-2.5-2.5); ABG HCO3 23.5 MMOL/L (20-26); ABG Oxygen Saturation 99.9 % (95-100); ABG PCO2 38.7 MM HG (35-48); ABG PH 7.392 (7.35-7.45); ABG TCO2 19.6 MMOL/L (23-27)
[2019-08-08] MEDS ORDERED: DILTIAZEM 50 MG/10 ML VIAL IV STA (21:00)
[2019-08-08 21:25] LABS: Sedimentation Rate-Westergren 4 MM/HR (0-30)
[2019-08-08] MEDS ORDERED: dilTIAZem Drip 125 MG/125 ML PREMIX IV SCH (21:30)
[2019-08-08] MEDS ORDERED: levETIRAcetam 500 MG TABLET PO SCH (22:30)
[2019-08-08] MEDS ORDERED: PROMETHAZINE 25 MG/1 ML VIAL IM PRN (22:52)
[2019-08-08] MEDS ORDERED: LORazepam 2 MG/1 ML VIAL IV PRN (22:52)
[2019-08-08] MEDS ORDERED: ONDANSETRON 4 MG/2 ML VIAL IV PRN (22:52)
[2019-08-08] MEDS ORDERED: ALBUTEROL 2.5 MG/3 ML NEB RESP TX PRN (22:52)
[2019-08-08] MEDS ORDERED: PHENYTOIN INJ 1,000 MG in SODIUM CHLORIDE 0.9% 100 ML IV ONE (23:00)
[2019-08-08] MEDS: dilTIAZem Drip 125 MG/125 ML PREMIX IV SCH (23:11)
[2019-08-08] MEDS: PANTOPRAZOLE 40 MG VIAL IV SCH (23:25)
[2019-08-08] MEDS: SODIUM CHLORIDE 0.9% 1,000 ML IV SCH (23:28)
[2019-08-08] MEDS: LORazepam 2 MG/1 ML VIAL IV PRN (23:39)
[2019-08-09 00:25] LABS: Allen Test Positive; Pt O2 Delivery Device Ventilator
[2019-08-09 00:27] LABS: ABG Base Excess -4.8 MMOL/L (-2.5-2.5); ABG HCO3 19.8 MMOL/L (20-26); ABG PCO2 35.5 MM HG (35-48); ABG PH 7.364 (7.35-7.45); ABG PO2 301.3 MM HG (80-95); ABG TCO2 20.9 MMOL/L (23-27)
[2019-08-09 00:28] LABS: ABG Oxygen Saturation 99.7 % (95-100)
[2019-08-09] MEDS: PHENYLEPHRINE DRIP 40 MG/250 ML PREMIX IV PRN ×4 (01:15→20:24)
[2019-08-09] MEDS ORDERED: DEXTROSE 10% 250 ML BAG IV PRN (01:43)
[2019-08-09] MEDS ORDERED: GLUCAGON 1 MG VIAL IM PRN (01:43)
[2019-08-09] MEDS ORDERED: SODIUM CHLORIDE 0.9% 1,000 ML IV ONE (02:20)
[2019-08-09] MEDS ORDERED: SODIUM BICARB INJ 150 MEQ in STERILE WATER INJ 850 ML IV SCH (02:30)
[2019-08-09 03:11] LABS: Basophils % 0.3 % (0.0-0.8); Eosinophils # 0.1 10*3/uL (0.0-0.87); Eosinophils % 0.5 % (0.00-10.9); Immature Granulocytes % 0.7 %; Immature Granulocytes Absolute 0.08 #; Lymphocytes % 8.3 % (21.3-54.2); Mean Corpuscular HGB Conc 31.8 GM/DL (32-36); Mean Corpuscular Volume 84.1 FL (87-102); Mean Platelet Volume 12.1 FL (9.6-12.0); Monocytes % 12.1 % (1.7-12.7); Neutrophils % 78.1 % (38.7-73.9); Platelet Count 91 T/CUMM (130-400); Red Blood Count 5.23 MC/CUMM (3.8-5.5); Red Cell Distribution Width 14.3 % (9.3-17.3)
[2019-08-09 03:46] LABS: CKMB % 0.9 %; Calcium 7.5 MG/DL (8.5-10.1); Osmolality,Calculated 327.9 MOS/KG (273-304)
[2019-08-09 04:07] LABS: Allen Test Positive; Pt O2 Delivery Device Ventilator
[2019-08-09 04:08] LABS: ABG Base Excess -0.8 MMOL/L (-2.5-2.5); ABG HCO3 23.8 MMOL/L (20-26); ABG Oxygen Saturation 99.6 % (95-100); ABG PCO2 39.5 MM HG (35-48); ABG PH 7.391 (7.35-7.45); ABG TCO2 20.8 MMOL/L (23-27)
[2019-08-09] MEDS: SODIUM CHLORIDE 0.9% 1,000 ML IV SCH (05:37)
[2019-08-09] MEDS: INSULIN REGULAR 100 UNIT/ML SUBCUT SCH ×3 (05:41→18:39)
[2019-08-09] MEDS ORDERED: POTASSIUM CHLORIDE 20 MEQ/15 ML UDCUP PER TUBE ONE (08:30)
[2019-08-09] MEDS: DEXTROSE 5% NACL 0.45% 1,000 ML IV SCH ×2 (09:27→16:54)
[2019-08-09] MEDS ORDERED: ASPIRIN CHEW 81 MG TABLET PO ONE (10:18)
[2019-08-09] MEDS: MANNITOL IV SCH ×2 (10:19→18:40)
[2019-08-09] MEDS: ASPIRIN EC 81 MG TABLET PO SCH (10:32)
[2019-08-09] MEDS: cefTRIAXone 1,000 MG in SYRINGE 1 EACH IV SCH (20:36)
[2019-08-09] MEDS: ATORVASTATIN 40 MG TABLET PO SCH (20:37)
[2019-08-09] MEDS: PANTOPRAZOLE 40 MG VIAL IV SCH (20:37)
[2019-08-09] MEDS: LORazepam 2 MG/1 ML VIAL IV PRN (22:48)
[2019-08-09] MEDS: dilTIAZem Drip 125 MG/125 ML PREMIX IV SCH (23:28)
[2019-08-10] MEDS: INSULIN REGULAR 100 UNIT/ML SUBCUT SCH ×4 (00:12→18:27)
[2019-08-10] MEDS: DEXTROSE 5% NACL 0.45% 1,000 ML IV SCH ×3 (00:49→18:44)
[2019-08-10] MEDS: PHENYLEPHRINE DRIP 40 MG/250 ML PREMIX IV PRN ×3 (01:15→10:18)
[2019-08-10] MEDS: MANNITOL IV SCH ×2 (02:20→15:52)
[2019-08-10] MEDS: LORazepam INJ 40 MG in DEXTROSE 5% 30 ML IV PRN ×2 (02:31→12:54)
[2019-08-10 03:15] LABS: Basophils % 0.3 % (0.0-0.8); Eosinophils # 0.1 10*3/uL (0.0-0.87); Hematocrit 39.6 VOL% (35.7-47.0); Hemoglobin 12.5 GM/DL (12.0-16.0); Immature Granulocytes % 1.1 %; Immature Granulocytes Absolute 0.13 #; Lymphocytes # 1.6 10*3/uL (1.4-4.0); Lymphocytes % 13.1 % (21.3-54.2); Mean Corpuscular HGB Conc 31.6 GM/DL (32-36); Mean Corpuscular Volume 84.1 FL (87-102); Mean Platelet Volume 12.2 FL (9.6-12.0); Monocytes % 12.9 % (1.7-12.7); Neutrophils % 71.6 % (38.7-73.9); Platelet Count 66 T/CUMM (130-400); Red Blood Count 4.71 MC/CUMM (3.8-5.5); Red Cell Distribution Width 14.2 % (9.3-17.3); White Blood Count 12.2 T/CUMM (4-12)
[2019-08-10 03:34] LABS: Albumin 2.5 G/DL (3.4-5.0); Bilirubin,Total 1.5 MG/DL (0.2-1.0); Calcium 7.3 MG/DL (8.5-10.1); Total Protein 5.5 G/DL (6.4-8.3)
[2019-08-10 04:08] LABS: ABG Base Excess 4.3 MMOL/L (-2.5-2.5); ABG HCO3 28.3 MMOL/L (20-26); ABG Oxygen Saturation 99.5 % (95-100); ABG PCO2 33.8 MM HG (35-48); ABG TCO2 23.5 MMOL/L (23-27); Allen Test Positive; Pt O2 Delivery Device Ventilator
[2019-08-10] MEDS: POTASSIUM CHLORIDE 20 MEQ/15 ML UDCUP PER TUBE PRN ×3 (05:10→12:28)
[2019-08-10 06:50] LABS: Anisocytosis 1+; Band Neutrophils 2 % (0-10); Lymphocytes 13 % (20-55); Macrocytosis 1+; Metamyelocytes 1 %; Platelet Estimate Decreased; Segmented Neutrophils 75 % (50-85); Total Cells Counted 100
[2019-08-10] MEDS: ASPIRIN EC 81 MG TABLET PO SCH (09:50)
[2019-08-10] MEDS ORDERED: DEXAMETHASONE 10 MG/1 ML VIAL IV ONE (10:00)
[2019-08-10] MEDS ORDERED: MANNITOL 12.5 GM/50 ML VIAL IV SCH (14:30)
[2019-08-10] MEDS ORDERED: DEXAMETHASONE 4 MG/1 ML VIAL IV SCH (16:00)
[2019-08-10] MEDS: DEXAMETHASONE 4 MG/1 ML VIAL IV SCH ×2 (16:50→21:34)
[2019-08-10] MEDS: ATORVASTATIN 40 MG TABLET PO SCH (21:33)
[2019-08-10] MEDS: cefTRIAXone 1,000 MG in SYRINGE 1 EACH IV SCH (21:33)
[2019-08-10] MEDS: PANTOPRAZOLE 40 MG VIAL IV SCH (21:33)
[2019-08-10] MEDS: dilTIAZem Drip 125 MG/125 ML PREMIX IV SCH (22:53)
[2019-08-11] MEDS: MANNITOL IV SCH ×3 (00:55→15:49)
[2019-08-11] MEDS: INSULIN REGULAR 100 UNIT/ML SUBCUT SCH ×4 (00:56→18:19)
[2019-08-11] MEDS: LORazepam INJ 40 MG in DEXTROSE 5% 30 ML IV PRN ×2 (03:36→19:25)
[2019-08-11 03:37] LABS: Basophils % 0.2 % (0.0-0.8); Hematocrit 36.3 VOL% (35.7-47.0); Hemoglobin 11.5 GM/DL (12.0-16.0); Immature Granulocytes % 0.8 %; Immature Granulocytes Absolute 0.08 #; Lymphocytes # 0.6 10*3/uL (1.4-4.0); Lymphocytes % 6.1 % (21.3-54.2); Mean Corpuscular HGB Conc 31.7 GM/DL (32-36); Mean Platelet Volume 11.9 FL (9.6-12.0); Monocytes % 6.4 % (1.7-12.7); Neutrophils % 86.5 % (38.7-73.9); Platelet Count 67 T/CUMM (130-400); Red Blood Count 4.32 MC/CUMM (3.8-5.5); Red Cell Distribution Width 13.9 % (9.3-17.3); White Blood Count 10.4 T/CUMM (4-12)
[2019-08-11 03:51] LABS: Calcium 7.4 MG/DL (8.5-10.1); Osmolality,Calculated 290.3 MOS/KG (273-304)
[2019-08-11] MEDS: POTASSIUM CHLORIDE 20 MEQ/15 ML UDCUP PER TUBE PRN ×3 (04:18→08:28)
[2019-08-11] MEDS: DEXAMETHASONE 4 MG/1 ML VIAL IV SCH ×4 (04:18→23:11)
[2019-08-11 04:43] LABS: ABG Base Excess 3.3 MMOL/L (-2.5-2.5); ABG HCO3 27.4 MMOL/L (20-26); ABG Oxygen Saturation 99.5 % (95-100); ABG PCO2 36.4 MM HG (35-48); ABG PH 7.475 (7.35-7.45); ABG TCO2 23.7 MMOL/L (23-27); Allen Test Positive; Pt O2 Delivery Device Ventilator
[2019-08-11] MEDS: DEXTROSE 5% NACL 0.45% 1,000 ML IV SCH ×3 (06:42→21:39)
[2019-08-11] MEDS: ASPIRIN EC 81 MG TABLET PO SCH (08:28)
[2019-08-11] MEDS: FUROSEMIDE 20 MG/2 ML VIAL IV SCH (09:51)
[2019-08-11] MEDS: POTASSIUM CHLORIDE 20 MEQ/15 ML UDCUP PO SCH ×2 (10:51→23:01)
[2019-08-11] MEDS: ATORVASTATIN 40 MG TABLET PO SCH (23:01)
[2019-08-11] MEDS: PANTOPRAZOLE 40 MG VIAL IV SCH (23:02)
[2019-08-11] MEDS: cefTRIAXone 1,000 MG in SYRINGE 1 EACH IV SCH (23:05)
[2019-08-11] MEDS: dilTIAZem Drip 125 MG/125 ML PREMIX IV SCH (23:43)
[2019-08-12] MEDS: INSULIN REGULAR 100 UNIT/ML SUBCUT SCH ×4 (00:31→17:59)
[2019-08-12] MEDS: MANNITOL IV SCH ×3 (01:13→15:30)
[2019-08-12 05:01] LABS: ABG Base Excess 2.5 MMOL/L (-2.5-2.5); ABG Oxygen Saturation 98.7 % (95-100); ABG PCO2 36.5 MM HG (35-48); ABG PH 7.471 (7.35-7.45); ABG PO2 124.3 MM HG (80-95); ABG TCO2 27.1 MMOL/L (23-27); Allen Test Positive; Pt O2 Delivery Device Ventilator
[2019-08-12] MEDS: DEXAMETHASONE 4 MG/1 ML VIAL IV SCH ×4 (05:44→21:53)
[2019-08-12 06:46] LABS: Basophils % 0.1 % (0.0-0.8); Hematocrit 36.6 VOL% (35.7-47.0); Hemoglobin 11.6 GM/DL (12.0-16.0); Immature Granulocytes % 1.3 %; Immature Granulocytes Absolute 0.14 #; Lymphocytes # 0.6 10*3/uL (1.4-4.0); Lymphocytes % 5.4 % (21.3-54.2); Mean Corpuscular HGB Conc 31.7 GM/DL (32-36); Mean Corpuscular Volume 83.4 FL (87-102); Mean Platelet Volume 12.4 FL (9.6-12.0); Monocytes % 9.7 % (1.7-12.7); Neutrophils % 83.5 % (38.7-73.9); Platelet Count 97 T/CUMM (130-400); Red Blood Count 4.39 MC/CUMM (3.8-5.5); Red Cell Distribution Width 13.9 % (9.3-17.3); White Blood Count 10.7 T/CUMM (4-12)
[2019-08-12 07:04] LABS: Calcium 7.9 MG/DL (8.5-10.1); Osmolality,Calculated 287.3 MOS/KG (273-304)
[2019-08-12] MEDS: ASPIRIN EC 81 MG TABLET PO SCH (08:17)
[2019-08-12] MEDS: POTASSIUM CHLORIDE 20 MEQ/15 ML UDCUP PO SCH ×2 (08:17→21:51)
[2019-08-12] MEDS: FUROSEMIDE 20 MG/2 ML VIAL IV SCH (08:18)
[2019-08-12] MEDS: DEXTROSE 5% NACL 0.45% 1,000 ML IV SCH (11:18)
[2019-08-12 12:42] LABS: Lymphocytes 5 % (20-55); Segmented Neutrophils 86 % (50-85); Total Cells Counted 100
[2019-08-12 12:43] LABS: Platelet Estimate Decreased
[2019-08-12] MEDS: PANTOPRAZOLE 40 MG VIAL IV SCH (21:46)
[2019-08-12] MEDS: ATORVASTATIN 40 MG TABLET PO SCH (21:51)
[2019-08-12] MEDS: cefTRIAXone 1,000 MG in SYRINGE 1 EACH IV SCH (21:51)
[2019-08-12] MEDS: LORazepam INJ 40 MG in DEXTROSE 5% 30 ML IV PRN (21:52)
[2019-08-12] MEDS: dilTIAZem Drip 125 MG/125 ML PREMIX IV SCH (22:25)
[2019-08-13] MEDS: MANNITOL IV SCH ×4 (01:44→23:56)
[2019-08-13] MEDS: INSULIN REGULAR 100 UNIT/ML SUBCUT SCH ×4 (02:00→19:03)
[2019-08-13] MEDS: DEXAMETHASONE 4 MG/1 ML VIAL IV SCH ×2 (04:48→17:00)
[2019-08-13 04:51] LABS: ABG Base Excess 3.9 MMOL/L (-2.5-2.5); ABG HCO3 27.3 MMOL/L (20-26); ABG Oxygen Saturation 98.5 % (95-100); ABG PCO2 36.9 MM HG (35-48); ABG PH 7.487 (7.35-7.45); ABG PO2 124.2 MM HG (80-95); ABG TCO2 28.4 MMOL/L (23-27); Allen Test Positive; Pt O2 Delivery Device Ventilator
[2019-08-13 07:00] LABS: Prealbumin 12.1 MG/DL (20-40)
[2019-08-13 07:16] LABS: Calcium 7.7 MG/DL (8.5-10.1); Osmolality,Calculated 283.5 MOS/KG (273-304)
[2019-08-13] MEDS: FUROSEMIDE 20 MG/2 ML VIAL IV SCH (09:44)
[2019-08-13] MEDS: POTASSIUM CHLORIDE 20 MEQ/15 ML UDCUP PO SCH ×2 (09:44→21:49)
[2019-08-13] MEDS: ASPIRIN CHEW 81 MG TABLET PO SCH (09:45)
[2019-08-13] MEDS: INSULIN GLARGINE 100 UNIT/ML SUBCUT SCH (09:45)
[2019-08-13] MEDS: LORazepam INJ 40 MG in DEXTROSE 5% 30 ML IV PRN (18:00)
[2019-08-13] MEDS: PANTOPRAZOLE 40 MG VIAL IV SCH (21:43)
[2019-08-13] MEDS: ATORVASTATIN 40 MG TABLET PO SCH (21:49)
[2019-08-13] MEDS: cefTRIAXone 1,000 MG in SYRINGE 1 EACH IV SCH (21:50)
[2019-08-13] MEDS: dilTIAZem Drip 125 MG/125 ML PREMIX IV SCH (23:12)
[2019-08-14] MEDS: INSULIN REGULAR 100 UNIT/ML SUBCUT SCH ×5 (00:19→23:48)
[2019-08-14 03:50] LABS: ABG Base Excess 6.6 MMOL/L (-2.5-2.5); ABG HCO3 30.5 MMOL/L (20-26); ABG Oxygen Saturation 99.4 % (95-100); ABG PH 7.482 (7.35-7.45); ABG TCO2 27.2 MMOL/L (23-27); Allen Test Positive; Pt O2 Delivery Device Ventilator
[2019-08-14] MEDS: DEXAMETHASONE 4 MG/1 ML VIAL IV SCH ×2 (04:59→16:36)
[2019-08-14 05:26] LABS: Basophils % 0.2 % (0.0-0.8); Eosinophils % 0.1 % (0.00-10.9); Hematocrit 35.7 VOL% (35.7-47.0); Hemoglobin 11.3 GM/DL (12.0-16.0); Immature Granulocytes % 3.9 %; Immature Granulocytes Absolute 0.39 #; Lymphocytes # 0.7 10*3/uL (1.4-4.0); Lymphocytes % 7.4 % (21.3-54.2); Mean Corpuscular HGB Conc 31.7 GM/DL (32-36); Mean Corpuscular Volume 84.6 FL (87-102); Mean Platelet Volume 11.6 FL (9.6-12.0); Monocytes % 12.1 % (1.7-12.7); Neutrophils % 76.3 % (38.7-73.9); Platelet Count 148 T/CUMM (130-400); Red Blood Count 4.22 MC/CUMM (3.8-5.5); Red Cell Distribution Width 13.8 % (9.3-17.3)
[2019-08-14 05:50] LABS: Calcium 7.8 MG/DL (8.5-10.1); Osmolality,Calculated 285.5 MOS/KG (273-304)
[2019-08-14] MEDS: MANNITOL IV SCH ×2 (09:18→16:36)
[2019-08-14] MEDS: INSULIN GLARGINE 100 UNIT/ML SUBCUT SCH (09:21)
[2019-08-14] MEDS: FUROSEMIDE 20 MG/2 ML VIAL IV SCH (09:22)
[2019-08-14] MEDS: POTASSIUM CHLORIDE 20 MEQ/15 ML UDCUP PO SCH ×2 (09:22→22:52)
[2019-08-14] MEDS: LORazepam INJ 40 MG in DEXTROSE 5% 30 ML IV PRN (10:07)
[2019-08-14] MEDS: ASPIRIN CHEW 81 MG TABLET PO SCH (12:42)
[2019-08-14 12:43] LABS: Hematocrit 34.2 VOL% (35.7-47.0); Hemoglobin 10.7 GM/DL (12.0-16.0)
[2019-08-14 20:07] LABS: Hematocrit 33.3 VOL% (35.7-47.0); Hemoglobin 10.4 GM/DL (12.0-16.0)
[2019-08-14] MEDS: PANTOPRAZOLE 40 MG VIAL IV SCH (22:50)
[2019-08-14] MEDS: ATORVASTATIN 40 MG TABLET PO SCH (22:52)
[2019-08-14] MEDS: cefTRIAXone 1,000 MG in SYRINGE 1 EACH IV SCH (22:53)
[2019-08-14] MEDS: dilTIAZem Drip 125 MG/125 ML PREMIX IV SCH (23:47)
[2019-08-15 02:56] LABS: ABG HCO3 31.8 MMOL/L (20-26); ABG Oxygen Saturation 99.4 % (95-100); ABG PCO2 43.7 MM HG (35-48); ABG PH 7.479 (7.35-7.45); ABG TCO2 29.4 MMOL/L (23-27); Allen Test Positive; Pt O2 Delivery Device Ventilator
[2019-08-15 03:05] LABS: Basophils % 0.2 % (0.0-0.8); Eosinophils # 0.1 10*3/uL (0.0-0.87); Eosinophils % 0.4 % (0.00-10.9); Hematocrit 32.5 VOL% (35.7-47.0); Hemoglobin 10.1 GM/DL (12.0-16.0); Immature Granulocytes % 6.1 %; Immature Granulocytes Absolute 0.73 #; Lymphocytes % 8.1 % (21.3-54.2); Mean Corpuscular HGB Conc 31.1 GM/DL (32-36); Mean Platelet Volume 11.4 FL (9.6-12.0); Monocytes % 15.8 % (1.7-12.7); Neutrophils % 69.4 % (38.7-73.9); Platelet Count 163 T/CUMM (130-400); Red Blood Count 3.78 MC/CUMM (3.8-5.5); Red Cell Distribution Width 13.4 % (9.3-17.3); White Blood Count 11.9 T/CUMM (4-12)
[2019-08-15 03:54] LABS: Band Neutrophils 4 % (0-10); Eosinophils 1 % (0-10); Lymphocytes 12 % (20-55); Myelocytes 1 %; Platelet Estimate Normal; Segmented Neutrophils 70 % (50-85); Total Cells Counted 100
[2019-08-15 03:55] LABS: Polychromasia Slight
[2019-08-15 03:57] LABS: Hypochromasia Slight; Microcytosis 1+
[2019-08-15] MEDS: DEXAMETHASONE 4 MG/1 ML VIAL IV SCH ×2 (04:23→15:51)
[2019-08-15] MEDS: INSULIN REGULAR 100 UNIT/ML SUBCUT SCH ×4 (05:22→23:33)
[2019-08-15] MEDS: INSULIN GLARGINE 100 UNIT/ML SUBCUT SCH (09:49)
[2019-08-15] MEDS: FUROSEMIDE 20 MG/2 ML VIAL IV SCH (09:49)
[2019-08-15] MEDS: POTASSIUM CHLORIDE 20 MEQ/15 ML UDCUP PO SCH ×2 (09:49→20:21)
[2019-08-15] MEDS: ASPIRIN CHEW 81 MG TABLET PO SCH (09:49)
[2019-08-15 14:55] LABS: Allen Test Positive; Pt O2 Delivery Device Ventilator
[2019-08-15 14:57] LABS: ABG Base Excess 7.8 MMOL/L (-2.5-2.5); ABG HCO3 31.6 MMOL/L (20-26); ABG Oxygen Saturation 99.2 % (95-100); ABG PCO2 45.3 MM HG (35-48); ABG PH 7.465 (7.35-7.45); ABG TCO2 29.2 MMOL/L (23-27)
[2019-08-15 15:50] LABS: Allen Test Positive; Pt O2 Delivery Device Ventilator
[2019-08-15 15:51] LABS: ABG Base Excess 8.8 MMOL/L (-2.5-2.5); ABG HCO3 32.6 MMOL/L (20-26); ABG Oxygen Saturation 99.4 % (95-100); ABG PCO2 43.1 MM HG (35-48); ABG PH 7.494 (7.35-7.45); ABG TCO2 29.7 MMOL/L (23-27)
[2019-08-15] MEDS: PANTOPRAZOLE 40 MG VIAL IV SCH (20:20)
[2019-08-15] MEDS: ATORVASTATIN 40 MG TABLET PO SCH (20:21)
[2019-08-15] MEDS: cefTRIAXone 1,000 MG in SYRINGE 1 EACH IV SCH (20:21)
[2019-08-15] MEDS: dilTIAZem Drip 125 MG/125 ML PREMIX IV SCH (23:32)
[2019-08-16] MEDS: DEXAMETHASONE 4 MG/1 ML VIAL IV SCH ×2 (04:55→15:28)
[2019-08-16 05:03] LABS: ABG Base Excess 7.6 MMOL/L (-2.5-2.5); ABG HCO3 31.9 MMOL/L (20-26); ABG Oxygen Saturation 98.3 % (95-100); ABG PCO2 43.7 MM HG (35-48); ABG PH 7.481 (7.35-7.45); ABG PO2 122.8 MM HG (80-95); ABG TCO2 33.2 MMOL/L (23-27); Allen Test Positive
[2019-08-16 05:33] LABS: Basophils % 0.3 % (0.0-0.8); Eosinophils # 0.3 10*3/uL (0.0-0.87); Eosinophils % 2.1 % (0.00-10.9); Hematocrit 31.5 VOL% (35.7-47.0); Hemoglobin 10.3 GM/DL (12.0-16.0); Immature Granulocytes % 6.2 %; Immature Granulocytes Absolute 0.85 #; Lymphocytes # 1.9 10*3/uL (1.4-4.0); Lymphocytes % 13.6 % (21.3-54.2); Mean Corpuscular HGB Conc 32.7 GM/DL (32-36); Mean Corpuscular Volume 84.9 FL (87-102); Mean Platelet Volume 12.2 FL (9.6-12.0); Monocytes % 13.1 % (1.7-12.7); Neutrophils % 64.7 % (38.7-73.9); Platelet Count 76 T/CUMM (130-400); Red Blood Count 3.71 MC/CUMM (3.8-5.5); Red Cell Distribution Width 13.6 % (9.3-17.3); White Blood Count 13.6 T/CUMM (4-12)
[2019-08-16] MEDS: INSULIN REGULAR 100 UNIT/ML SUBCUT SCH ×4 (05:42→23:56)
[2019-08-16 05:54] LABS: Prealbumin 22.7 MG/DL (20-40)
[2019-08-16 06:06] LABS: Eosinophils 1 % (0-10); Hypochromasia 1+; Lymphocytes 13 % (20-55); Ovalocytes Slight; Platelet Estimate Decreased; Segmented Neutrophils 77 % (50-85); Total Cells Counted 100
[2019-08-16 06:07] LABS: Microcytosis 1+
[2019-08-16 06:08] LABS: Calcium 7.7 MG/DL (8.5-10.1); Osmolality,Calculated 281.5 MOS/KG (273-304)
[2019-08-16] MEDS: FUROSEMIDE 20 MG/2 ML VIAL IV SCH (09:05)
[2019-08-16] MEDS: POTASSIUM CHLORIDE 20 MEQ/15 ML UDCUP PO SCH ×2 (09:05→21:19)
[2019-08-16] MEDS: ASPIRIN CHEW 81 MG TABLET PO SCH (09:05)
[2019-08-16] MEDS: INSULIN GLARGINE 100 UNIT/ML SUBCUT SCH (09:09)
[2019-08-16] MEDS: PANTOPRAZOLE 40 MG VIAL IV SCH (21:18)
[2019-08-16] MEDS: ATORVASTATIN 40 MG TABLET PO SCH (21:19)
[2019-08-16] MEDS: cefTRIAXone 1,000 MG in SYRINGE 1 EACH IV SCH (21:19)
[2019-08-16] MEDS: dilTIAZem Drip 125 MG/125 ML PREMIX IV SCH (22:00)
[2019-08-17] MEDS ORDERED: ACETAMINOPHEN 325 MG TABLET PO PRN (00:57)
[2019-08-17] MEDS: DEXAMETHASONE 4 MG/1 ML VIAL IV SCH (04:25)
[2019-08-17 05:06] LABS: Basophils % 0.2 % (0.0-0.8); Eosinophils # 0.4 10*3/uL (0.0-0.87); Eosinophils % 3.3 % (0.00-10.9); Hematocrit 32.2 VOL% (35.7-47.0); Hemoglobin 10.1 GM/DL (12.0-16.0); Immature Granulocytes % 4.9 %; Immature Granulocytes Absolute 0.64 #; Lymphocytes # 1.6 10*3/uL (1.4-4.0); Lymphocytes % 11.8 % (21.3-54.2); Mean Corpuscular HGB Conc 31.4 GM/DL (32-36); Mean Corpuscular Volume 85.9 FL (87-102); Mean Platelet Volume 10.3 FL (9.6-12.0); Monocytes % 12.5 % (1.7-12.7); Neutrophils % 67.3 % (38.7-73.9); Red Blood Count 3.75 MC/CUMM (3.8-5.5); Red Cell Distribution Width 13.6 % (9.3-17.3); White Blood Count 13.1 T/CUMM (4-12)
[2019-08-17 05:17] LABS: Platelet Count 233 T/CUMM (130-400)
[2019-08-17 05:20] LABS: Calcium 7.8 MG/DL (8.5-10.1); Osmolality,Calculated 276.8 MOS/KG (273-304)
[2019-08-17 05:41] LABS: Eosinophils 4 % (0-10); Hypochromasia 1+; Lymphocytes 14 % (20-55); Microcytosis 1+; Platelet Estimate Normal; Segmented Neutrophils 76 % (50-85); Total Cells Counted 100
[2019-08-17 05:42] LABS: Atypical Lymphocytes Few
[2019-08-17] MEDS: INSULIN REGULAR 100 UNIT/ML SUBCUT SCH ×3 (06:20→20:54)
[2019-08-17] MEDS: INSULIN GLARGINE 100 UNIT/ML SUBCUT SCH (09:51)
[2019-08-17] MEDS: ASPIRIN CHEW 81 MG TABLET PO SCH (09:51)
[2019-08-17] MEDS: POTASSIUM CHLORIDE 20 MEQ/15 ML UDCUP PO SCH ×2 (09:51→20:54)
[2019-08-17] MEDS: FUROSEMIDE 20 MG/2 ML VIAL IV SCH (09:52)
[2019-08-17] MEDS: POTASSIUM CHLORIDE 20 MEQ/15 ML UDCUP PER TUBE PRN (09:52)
[2019-08-17] MEDS: ATORVASTATIN 40 MG TABLET PO SCH (20:54)
[2019-08-17] MEDS: cefTRIAXone 1,000 MG in SYRINGE 1 EACH IV SCH (21:26)
[2019-08-17] MEDS: PANTOPRAZOLE 40 MG VIAL IV SCH (21:26)
[2019-08-18] MEDS: dilTIAZem Drip 125 MG/125 ML PREMIX IV SCH (00:49)
[2019-08-18] MEDS: INSULIN REGULAR 100 UNIT/ML SUBCUT SCH ×4 (00:50→18:49)
[2019-08-18 05:45] LABS: Basophils % 0.3 % (0.0-0.8); Eosinophils # 0.5 10*3/uL (0.0-0.87); Eosinophils % 4.2 % (0.00-10.9); Hematocrit 33.1 VOL% (35.7-47.0); Hemoglobin 10.5 GM/DL (12.0-16.0); Immature Granulocytes % 3.8 %; Immature Granulocytes Absolute 0.48 #; Lymphocytes # 1.4 10*3/uL (1.4-4.0); Lymphocytes % 10.8 % (21.3-54.2); Mean Corpuscular HGB Conc 31.7 GM/DL (32-36); Mean Corpuscular Volume 84.9 FL (87-102); Mean Platelet Volume 10.5 FL (9.6-12.0); Monocytes % 11.9 % (1.7-12.7); NRBC # 0.02 10*3/uL; Platelet Count 275 T/CUMM (130-400); Red Cell Distribution Width 14.3 % (9.3-17.3); White Blood Count 12.6 T/CUMM (4-12)
[2019-08-18 06:14] LABS: Calcium 7.8 MG/DL (8.5-10.1); Osmolality,Calculated 284.4 MOS/KG (273-304)
[2019-08-18] MEDS: INSULIN GLARGINE 100 UNIT/ML SUBCUT SCH (10:32)
[2019-08-18] MEDS: POTASSIUM CHLORIDE 20 MEQ/15 ML UDCUP PO SCH ×3 (10:32→21:32)
[2019-08-18] MEDS: ASPIRIN CHEW 81 MG TABLET PO SCH ×2 (10:33→12:35)
[2019-08-18] MEDS: FUROSEMIDE 20 MG/2 ML VIAL IV SCH (10:33)
[2019-08-18] MEDS: PANTOPRAZOLE 40 MG VIAL IV SCH (21:26)
[2019-08-18] MEDS: cefTRIAXone 1,000 MG in SYRINGE 1 EACH IV SCH (21:27)
[2019-08-18] MEDS: ATORVASTATIN 40 MG TABLET PO SCH (21:27)
[2019-08-19] MEDS: INSULIN REGULAR 100 UNIT/ML SUBCUT SCH ×2 (01:03→06:22)
[2019-08-19 05:22] LABS: Calcium 8.2 MG/DL (8.5-10.1); Osmolality,Calculated 287.5 MOS/KG (273-304)
[2019-08-19 09:32] LABS: Basophils % 0.1 % (0.0-0.8); Eosinophils # 0.1 10*3/uL (0.0-0.87); Eosinophils % 0.9 % (0.00-10.9); Hematocrit 35.3 VOL% (35.7-47.0); Hemoglobin 11.1 GM/DL (12.0-16.0); Immature Granulocytes Absolute 0.29 #; Lymphocytes # 0.9 10*3/uL (1.4-4.0); Lymphocytes % 6.2 % (21.3-54.2); Mean Corpuscular HGB Conc 31.4 GM/DL (32-36); Mean Corpuscular Volume 85.3 FL (87-102); Mean Platelet Volume 9.9 FL (9.6-12.0); Monocytes % 9.4 % (1.7-12.7); Neutrophils % 81.4 % (38.7-73.9); Platelet Count 327 T/CUMM (130-400); Red Blood Count 4.14 MC/CUMM (3.8-5.5); Red Cell Distribution Width 14.7 % (9.3-17.3); White Blood Count 14.8 T/CUMM (4-12)
[2019-08-19 10:21] VITALS: BP 110/67
[2019-08-19] MEDS: POTASSIUM CHLORIDE 20 MEQ/15 ML UDCUP PO SCH (10:45)
[2019-08-19] MEDS: INSULIN GLARGINE 100 UNIT/ML SUBCUT SCH (10:46)
[2019-08-19] MEDS: FUROSEMIDE 20 MG/2 ML VIAL IV SCH (10:46)
[2019-08-19] MEDS: ASPIRIN CHEW 81 MG TABLET PO SCH (10:47)
[2019-08-19] MEDS ORDERED: SODIUM CHLORIDE 0.9% 1,000 ML IV ONE (11:28)
[2019-08-19] MEDS: LORazepam 2 MG/1 ML VIAL IV PRN (21:02)
[2019-08-20] MEDS: LORazepam 2 MG/1 ML VIAL IV PRN (03:15)
[2019-08-20] MEDS: MORPHINE 4 MG/1 ML VIAL IV PRN ×2 (03:30→09:27)
== END 2019-08-20 14:13 | disposition hospice, inpatient (51) | DRG 64 ==
LOC: EDBD → EDUNIT# → N.ED 19:50 → SUATTDRO 21:28 → N.EDINP 21:28 → N.ICU 21:54 → N.4E 08-17 13:12
PROVIDERS: ADMIT Internal Medicine; ATTEND Family Medicine

== ENCOUNTER 2019-08-20 14:07 | Inpatient (IN) ==
[2019-08-20] MEDS ORDERED: LORazepam 2 MG/1 ML VIAL IV PRN (16:00)
[2019-08-20] MEDS: MORPHINE 4 MG/1 ML VIAL IV SCH ×2 (17:02→20:32)
[2019-08-20] MEDS ORDERED: ACETAMINOPHEN 650 MG SUPP RECTAL PRN (17:49)
[2019-08-21] MEDS: MORPHINE 4 MG/1 ML VIAL IV SCH ×6 (00:02→20:14)
[2019-08-22] MEDS: MORPHINE 4 MG/1 ML VIAL IV SCH ×5 (01:05→16:52)
[2019-08-22 20:04] VITALS: BP 99/80
== END 2019-08-22 20:15 | disposition expired | DRG 951 ==
LOC: N.4E 14:07
PROVIDERS: ADMIT Internal Medicine; ATTEND Internal Medicine